=== PATIENT | male | born 1940 ===

== ENCOUNTER 2024-01-30 11:22 | Day surgery (SDC) | payer OTHER ==
[~2024-01-30] VITALS: Ht 180.3 cm; Wt 80.3 kg
[~2024-01-30 11:22] MED LIST: Balanced Salt Epinephrine Irrigation Solution 500 mL IR SCH; Lidocaine HCl/Pf 1% 5 ML VIAL XX SCH; Moxifloxacin HCL 0.5 MG/0.1 ML 0.4MLSYR LEFTEYE SCH; NS 500 ML IV ONE; PHENYLEPHRINE\\TROPICAMIDE\\TETRACAINE OPHTHALMIC DILATING SOLN LEFTEYE PRN; Povidone-Iodine 450 DROP/30 ML Solution LEFTEYE SCH
[2024-01-30] MEDS ORDERED: FentaNYL Citrate 50 MCG/ML 2 ML Injection ONE (13:23)
[2024-01-30] MEDS ORDERED: Midazolam HCl 1MG / ML 2ML Vial ONE (13:23)
[2024-01-30] MEDS ORDERED: EZALLOR SPRINKL20 MG PO (13:31)
[2024-01-30] MEDS ORDERED: ATEN50 PO (13:31)
[2024-01-30] MEDS ORDERED: Prinivil10 MG PO (13:31)
[2024-01-30] MEDS ORDERED: Oretic 25 mg Ta25 MG PO (13:31)
[2024-01-30] MEDS ORDERED: CLOP75 PO (13:32)
[2024-01-30] MEDS ORDERED: VITAMIN D31000 UNIT PO (13:32)
[2024-01-30] MEDS ORDERED: PRESERVISION A1 EAC1 PO (13:33)
[2024-01-30] MEDS ORDERED: NS 500 ML IV ONE (13:39)
== END 2024-01-30 15:15 | disposition home or self-care (01) ==
LOC: ORSCSDS 11:22
PROVIDERS: Student in an Organized Health Care Education/Training Program
PROC: 08RK3JZ Replacement of Left Lens with Synthetic Substitute, Percutaneous Approach (ICD-10-PCS; principal; 2024-01-30 13:00)
DX: H25.812 Combined forms of age-related cataract, left eye (principal); H52.202 Unspecified astigmatism, left eye; Z96.1 Presence of intraocular lens; I10 Essential (primary) hypertension; K21.9 Gastro-esophageal reflux disease without esophagitis; Z86.73 Personal history of transient ischemic attack (TIA), and cerebral infarction without residual deficits; Z79.02 Long term (current) use of antithrombotics/antiplatelets; Z79.899 Other long term (current) drug therapy
CPT/HCPCS: J2250; J3010; J7040; V2632

== ENCOUNTER 2024-02-06 11:54 | Day surgery (SDC) | payer OTHER ==
[~2024-02-06] VITALS: Ht 180.3 cm; Wt 80.0 kg
[~2024-02-06 11:54] MED LIST changes: +ATEN50 PO; +CLOP75 PO; +EZALLOR SPRINKL20 MG PO; +FentaNYL Citrate 50 MCG/ML 2 ML Injection ONE; +Midazolam HCl 1MG / ML 2ML Vial ONE; -Moxifloxacin HCL 0.5 MG/0.1 ML 0.4MLSYR LEFTEYE SCH; +Moxifloxacin HCL 0.5 MG/0.1 ML 0.4MLSYR RIGHTEYE SCH; +Oretic 25 mg Ta25 MG PO; -PHENYLEPHRINE\\TROPICAMIDE\\TETRACAINE OPHTHALMIC DILATING SOLN LEFTEYE PRN; +PHENYLEPHRINE\\TROPICAMIDE\\TETRACAINE OPHTHALMIC DILATING SOLN RIGHTEYE PRN; +PRESERVISION A1 EAC1 PO; -Povidone-Iodine 450 DROP/30 ML Solution LEFTEYE SCH; +Povidone-Iodine 450 DROP/30 ML Solution RIGHTEYE SCH; +Prinivil10 MG PO; +VITAMIN D31000 UNIT PO
[2024-02-06] MEDS ORDERED: NS 1,000 ML IV ONE ×2 (12:23)
== END 2024-02-06 13:57 | disposition home or self-care (01) ==
LOC: ORSCSDS 11:54
PROVIDERS: Student in an Organized Health Care Education/Training Program
PROC: 08RJ3JZ Replacement of Right Lens with Synthetic Substitute, Percutaneous Approach (ICD-10-PCS; principal; 2024-02-06 13:00)
DX: H25.811 Combined forms of age-related cataract, right eye (principal); H52.201 Unspecified astigmatism, right eye; H35.3112 Nonexudative age-related macular degeneration, right eye, intermediate dry stage; Z96.1 Presence of intraocular lens; I10 Essential (primary) hypertension; K21.9 Gastro-esophageal reflux disease without esophagitis; Z86.73 Personal history of transient ischemic attack (TIA), and cerebral infarction without residual deficits; Z79.02 Long term (current) use of antithrombotics/antiplatelets; Z79.899 Other long term (current) drug therapy
CPT/HCPCS: J2250; J3010; J7040; V2632